=== PATIENT | male | born 2000 | race Hispanic/Latino ===

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

== ENCOUNTER 2019-01-17 16:00 | Emergency (ER) | payer BC ==
[2019-01-17] MEDS ORDERED: MAGNES/ALUMIN/SIMET 30ML UCUP ONE (16:29)
[2019-01-17] MEDS ORDERED: LIDOCAINE VISCOUS 2% SOLN 15 ML UDC ONE (16:29)
[2019-01-17] MEDS ORDERED: FAMOTIDINE 20 MG TAB ONE (16:29)
--- NOTE | 2019-01-17 16:32 | ER ---
Nurse's Notes [facility] Name: Oni Powers Age: 18 yrs Sex: Male : 2000 Arrival Date: 01/17/2019 Time: 16:05 Bed 10 Private MD: Diagnosis: Gastritis, unspecified Presentation: 01/17 16:05 Presenting complaint: Patient states: epigastric burning that began this morning. Pt ss reports he ate [employer] peppers last night for a competition and believes that is what has caused this discomfort. Transition of care: patient was not received from another setting of care. Onset of symptoms was January 17, 2019. Risk Assessment: Do you want to hurt yourself or someone else? Patient reports no desire to harm self or others. Initial Sepsis Screen: Does the patient meet any 2 criteria? No. Patient's initial sepsis screen is negative. Does the patient have a suspected source of infection? No. Patient's initial sepsis screen is negative. Care prior to arrival: None. 16:05 Method Of Arrival: Ambulatory ss 16:05 Acuity: JOSE 5 ss Historical: - Allergies: 16:06 Amoxicillin; ss 16:06 Azithromycin; ss 16:06 Cephalexin Monohydrate; ss 16:06 PENICILLINS; ss 16:06 pseudoephedrine HCl; ss - Home Meds: 16:06 None [Active]; ss - PMHx: 16:06 adrenal insufficientcy; ss - PSHx: 16:06 None; ss - Immunization history:: Adult Immunizations up to date. - Social history:: Smoking status: Patient/guardian denies using tobacco. - Ebola Screening: : Patient denies exposure to infectious person Patient denies travel to an Ebola-affected area in the 21 days before illness onset. Screenin:40 Abuse screen: Denies threats or abuse. Denies injuries from another. Nutritional iw screening: No deficits noted. Tuberculosis screening: No symptoms or risk factors identified. Fall Risk None identified. Assessment: 16:38 General: Appears in no apparent distress. Behavior is calm, cooperative. Pain: iw Complains of pain in abdomen. Neuro: Level of Consciousness is awake, alert, obeys commands. Respiratory: Respiratory effort is even, unlabored, Respiratory pattern is regular. GI: Abdomen is non-distended. Derm: Skin is intact, is healthy with good turgor. Musculoskeletal: Range of motion: intact in all extremities. Vital Signs: 16:06 BP 122 / 80; Pulse 67; Resp 15; Temp 97.6(TE); Pulse Ox 98% on R/A; Weight 59.87 kg; ss Height 5 ft. 5 in. (165.10 cm); Pain 10/10; 16:06 Body Mass Index 21.97 (59.87 kg, 165.10 cm) ED Course: 16:05 Patient arrived in ED. ss 16:06 Triage completed. ss 16:06 Arm band placed on right wrist. ss 16:08 Mark Irizarry NP is PHCP. pm1 16:08 Slim Jon MD is Attending Physician. pm1 16:16 Loree Flores RN is Primary Nurse. ss 16:39 No provider procedures requiring assistance completed. Patient did not have IV access iw during this emergency room visit. 16:40 Patient has correct armband on for positive identification. iw Administered Medications: 16:16 Drug: GI Cocktail without - (Maalox Suspension 30 ml, Lidocaine Liquid 2 % 15 ss ml) Route: PO; 16:40 Follow up: Response: No adverse reaction; Pain is decreased iw 16:17 Drug: Pepcid 20 mg Route: PO; ss 16:40 Follow up: Response: No adverse reaction iw Outcome: 16:31 Discharge ordered by . pm1 16:39 Discharged to home ambulatory, with family. iw 16:39 Condition: good 16:39 Discharge instructions given to 16:41 Patient left the ED. iw Signatures: Dayanara Negro RN RN Loree Flores RN RN Mark Irizarry NP EMERGENCY CARE TECH pm1
--- NOTE | 2019-01-17 16:33 | EDPHYS ---
Physician Documentation [facility] Name: Oni Powers Age: 18 yrs Sex: Male : 2000 Arrival Date: 01/17/2019 Time: 16:05 Bed 10 Private MD: ED Physician Slim Jon HPI: 01/17 16:17 This 18 yrs old Male presents to ER via Ambulatory with complaints of pm1 Epigastric Pain. 16:17 The patient presents with abdominal pain. Onset: The symptoms/episode began/occurred pm1 yesterday. The symptoms do not radiate. Associated signs and symptoms: Pertinent negatives: nausea, vomiting, and diarrhea, constipation, dysuria, fever. The symptoms are described as burning. Modifying factors: The symptoms are alleviated by nothing, the symptoms are aggravated by nothing. Severity of pain: in the emergency department the pain has improved. The patient has not experienced similar symptoms in the past. The patient has not recently seen a physician. Patient ate a [employer] pepper for a dare/challenge yesterday. Historical: - Allergies: 16:06 Amoxicillin; ss 16:06 Azithromycin; ss 16:06 Cephalexin Monohydrate; ss 16:06 PENICILLINS; ss 16:06 pseudoephedrine HCl; ss - Home Meds: 16:06 None [Active]; ss - PMHx: 16:06 adrenal insufficientcy; ss - PSHx: 16:06 None; ss - Immunization history:: Adult Immunizations up to date. - Social history:: Smoking status: Patient/guardian denies using tobacco. - Ebola Screening: : Patient denies exposure to infectious person Patient denies travel to an Ebola-affected area in the 21 days before illness onset. ROS: 16:17 Constitutional: Negative for fever, chills, and weight loss, Eyes: Negative for injury, pm1 pain, redness, and discharge, ENT: Negative for injury, pain, and discharge, Neck: Negative for injury, pain, and swelling, Cardiovascular: Negative for chest pain, palpitations, and edema, Respiratory: Negative for shortness of breath, cough, wheezing, and pleuritic chest pain. 16:17 Back: Negative for injury and pain, : Negative for injury, bleeding, discharge, and swelling, MS/Extremity: Negative for injury and deformity, Skin: Negative for injury, rash, and discoloration, Neuro: Negative for headache, weakness, numbness, tingling, and seizure. 16:17 Abdomen/GI: Positive for abdominal pain, of the epigastric area, Negative for nausea, vomiting, and diarrhea. Exam: 16:17 Constitutional: This is a well developed, well nourished patient who is awake, alert, pm1 and in no acute distress. Head/Face: Normocephalic, atraumatic. Neck: Trachea midline, no thyromegaly or masses palpated, and no cervical lymphadenopathy. Supple, full range of motion without nuchal rigidity, or vertebral point tenderness. No Meningismus. Chest/axilla: Normal chest wall appearance and motion. Nontender with no deformity. No lesions are appreciated. Cardiovascular: Regular rate and rhythm with a normal S1 and S2. No gallops, murmurs, or rubs. Normal PMI, no JVD. No pulse deficits. Respiratory: Lungs have equal breath sounds bilaterally, clear to auscultation and percussion. No rales, rhonchi or wheezes noted. No increased work of breathing, no retractions or nasal flaring. Abdomen/GI: Soft, non-tender, with normal bowel sounds. No distension or tympany. No guarding or rebound. No evidence of tenderness throughout. Back: No spinal tenderness. No costovertebral tenderness. Full range of motion. Skin: Warm, dry with normal turgor. Normal color with no rashes, no lesions, and no evidence of cellulitis. MS/ Extremity: Pulses equal, no cyanosis. Neurovascular intact. Full, normal range of motion. 16:17 Neuro: Orientation: is normal, Motor: is normal, moves all fours, Gait: is steady, at a normal pace, without difficulty. Vital Signs: 16:06 BP 122 / 80; Pulse 67; Resp 15; Temp 97.6(TE); Pulse Ox 98% on R/A; Weight 59.87 kg; ss Height 5 ft. 5 in. (165.10 cm); Pain 10/10; 16:06 Body Mass Index 21.97 (59.87 kg, 165.10 cm) ss MDM: 16:09 Patient medically screened. pm1 16:28 Data reviewed: vital signs. Data interpreted: Pulse oximetry: on room air is 98 %. pm1 Interpretation: normal. Counseling: I had a detailed discussion with the patient and/or guardian regarding: the historical points, exam findings, and any diagnostic results supporting the discharge/admit diagnosis, the need for outpatient follow up, to return to the emergency department if symptoms worsen or persist or if there are any questions or concerns that arise at home. Administered Medications: 16:16 Drug: GI Cocktail without - (Maalox Suspension 30 ml, Lidocaine Liquid 2 % 15 ss ml) Route: PO; 16:40 Follow up: Response: No adverse reaction; Pain is decreased iw 16:17 Drug: Pepcid 20 mg Route: PO; ss 16:40 Follow up: Response: No adverse reaction iw Disposition: 17:02 Co-signature as Attending Physician, Slim Jon MD. Disposition: 01/17/19 16:31 Discharged to Home. Impression: Gastritis, unspecified. - Condition is Stable. - Discharge Instructions: Gastritis, Adult. - Prescriptions for Pepcid 20 mg Oral Tablet - take 1 tablet by ORAL route every 12 hours for 10 days; 20 tablet. - Medication Reconciliation Form, Thank You Letter, Antibiotic Education, Prescription Opioid Use form. - Follow up: Emergency Department; When: As needed; Reason: Worsening of condition. Follow up: Private Physician; When: 2 - 3 days; Reason: Recheck today's complaints, Continuance of care, Re-evaluation by your physician. - Problem is new. - Symptoms have improved. Signatures: Dayanara Negro RN RN Loree Flores RN RN Mark Irizarry, BARBER [employer]AUTY [employer] MANAGER [employer]BER [employer] BEAUTY [employer] MANAGER pm1 Slim Jon MD MD Corrections: (The following items were deleted from the chart) 16:41 16:31 01/17/2019 16:31 Discharged to Home. Impression: Gastritis, unspecified. iw Condition is Stable. Forms are Medication Reconciliation Form, Thank You Letter, Antibiotic Education, Prescription Opioid Use. Follow up: Emergency Department; When: As needed; Reason: Worsening of condition. Follow up: Private Physician; When: 2 - 3 days; Reason: Recheck today's complaints, Continuance of care, Re-evaluation by your physician. Problem is new. Symptoms have improved. pm1
[2019-01-17 17:42] VITALS: BP 122/80; TEMP 97.6; O2SAT 98
== END 2019-01-17 16:41 | disposition home or self-care (01) ==
LOC: ER 16:00
DX: K29.70 Gastritis, unspecified, without bleeding (principal); Z88.0 Allergy status to penicillin; Z88.1 Allergy status to other antibiotic agents; Z88.8 Allergy status to other drugs, medicaments and biological substances
CPT/HCPCS: 99283

== ENCOUNTER 2019-08-19 16:33 | Emergency (ER) | payer BC ==
[2019-08-19 18:11] LABS: Absolute Lymphocytes (CBC) 1.7 K/uL (0.7-4.9); Basophils % 0.3 % (0-1.3); Hematocrit 51.3 % (39.6-49.0); Lymphocytes % 26.6 % (15.3-44.8); MPV 8.1 fL (7.6-11.3); RBC Red Blood Cell Count 6.03 M/uL (4.33-5.43)
[2019-08-19 18:22] LABS: Urine Blood NEGATIVE (NEG); Urine Glucose NEGATIVE (NEG); Urine Protein NEGATIVE (NEG); Urine Specific Gravity >1.030 (1.005-1.030)
[2019-08-19] MEDS ORDERED: NA CHLORIDE 0.9% 1,000 ML ONE (18:28)
[2019-08-19] MEDS ORDERED: ONDANSETRON 4 MG/2 ML VIAL ONE (18:28)
[2019-08-19 18:29] LABS: ALT/SGPT 20 U/L (12-78); AST/SGOT 12 U/L (15-37); Albumin 4.6 g/dL (3.4-5.0); Alkaline Phosphatase 108 U/L (45-117); BUN Blood Urea Nitrogen 14 mg/dL (7-18); Bicarbonate 29 mmol/L (21-32); Bilirubin Direct 0.2 mg/dL (0-0.2); Bilirubin Total 0.8 mg/dL (0.2-1.0); Glucose Level 102 mg/dL (74-106); Lipase 182 U/L (73-393); Potassium 3.6 mmol/L (3.5-5.1); Protein, Total 7.9 g/dL (6.4-8.2); Sodium Level 139 mmol/L (136-145)
--- NOTE | 2019-08-19 19:18 | RAD REPORT ---
EXAM DESCRIPTION: CT - Abdomen Pelvis W Contrast - 08/19/2019 7:05 pm CLINICAL HISTORY: ABD PAIN COMPARISON: No comparisons TECHNIQUE: Biphasic, helical CT imaging of the abdomen and pelvis was performed following 100 ml non -ionic IV contrast. No oral contrast. All CT scans are performed using dose optimization technique as appropriate and may include automated exposure control or mA/KV adjustment according to patient size. FINDINGS: No suspicious findings in the lung bases. The liver, spleen, and pancreas show no suspicious findings. Gallbladder and biliary tree are also wi thout suspicious finding. Symmetric renal function is seen with no hydronephrosis or suspicious renal mass. No pyelonephritis o r acute parenchymal process. No bladder abnormalities. No adrenal abnormalities. No dilated bowel loops or bowel wall thickening. The appendix is normal in diameter. No surrounding e dematous/ inflammatory stranding. Patient does have multiple mesenteric lymph nodes in the right lowe r quadrant and a few central mesenteric lymph nodes. No free air, free fluid or inflammatory strandin g. No hernia, mass or bulky lymphadenopathy. No suspicious bony findings. IMPRESSION: Mesenteric adenitis or nonspecific enteritis pattern. No appendicitis findings or other surgically emergent finding.
--- NOTE | 2019-08-19 19:34 | EDPHYS ---
Physician Documentation [facility] Name: Oni Powers Age: 19 yrs Sex: Male : 2000 Arrival Date: 08/19/2019 Time: 16:34 Bed Treatment Private MD: ED Physician Blue Sow HPI: 08/19 17:55 This 19 yrs old Male presents to ER via Ambulatory with complaints of la1 Abdominal Pain. 17:55 The patient presents with abdominal pain right lower quadrant. Onset: The la1 symptoms/episode began/occurred 1 week(s) ago, and became worse. The symptoms do not radiate. Associated signs and symptoms: Pertinent positives: nausea, vomiting, and diarrhea. The symptoms are described as sharp. Modifying factors: The symptoms are alleviated by nothing, the symptoms are aggravated by movement, pressure, touching the area. Severity of pain: At its worst the pain was moderate. The patient has not experienced similar symptoms in the past. pt reports RLQ pain that is non-radiating, pain for the last week, made worse with lying on the left side. 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 - Coronavirus screen:: The patient has NOT traveled to [place], [place], or [place] in the past 14 days. The patient has NOT had contact with known/suspected case of Coronavirus?. - Social history:: Smoking status: Patient denies any tobacco usage or history of. - Ebola Screening: : Patient negative for fever greater than or equal to 101.5 degrees Fahrenheit, and additional compatible Ebola Virus Disease symptoms Patient denies exposure to infectious person Patient denies travel to an Ebola-affected area in the 21 days before illness onset No symptoms or risks identified at this time. ROS: 17:56 Constitutional: Negative for fever, chills, and weight loss, Eyes: Negative for injury, la1 pain, redness, and discharge, ENT: Negative for injury, pain, and discharge, Neck: Negative for injury, pain, and swelling, Cardiovascular: Negative for chest pain, palpitations, and edema, Respiratory: Negative for shortness of breath, cough, wheezing, and pleuritic chest pain. 17:56 Back: Negative for injury and pain, MS/Extremity: Negative for injury and deformity, Neuro: Negative for headache, weakness, numbness, tingling, and seizure, Endocrine: Negative for neck swelling, polydipsia, polyuria, polyphagia, and marked weight changes. 17:56 Abdomen/GI: Positive for abdominal pain, nausea, vomiting, and diarrhea. Exam: 17:57 Constitutional: This is a well developed, well nourished patient who is awake, alert, la1 and in no acute distress. Head/Face: Normocephalic, atraumatic. ENT: Mucous membranes moist. Neck: Trachea midline, No Meningismus. Chest/axilla: Normal chest wall appearance and motion. Nontender with no deformity. No lesions are appreciated. Cardiovascular: Regular rate and rhythm with a normal S1 and S2. Respiratory: Lungs have equal breath sounds bilaterally, clear to auscultation Back: No spinal tenderness. No costovertebral tenderness. Full range of motion. 17:57 MS/ Extremity: Pulses equal, no cyanosis. Neurovascular intact. Full, normal range of motion. Neuro: Awake and alert, GCS 15, oriented to person, place, time, and situation. Normal gait. 17:57 Abdomen/GI: Inspection: abdomen appears normal, Bowel sounds: normal, in all quadrants, Palpation: soft, in all quadrants, mild abdominal tenderness, in the right lower quadrant, Indicators: McBurney's point is tender, Dillard's sign is negative, Rovsing's sign is positive, Obturator sign is negative, Psoas sign is negative. Vital Signs: 17:14 BP 107 / 79; Pulse 77; Resp 17 S; Temp 97.9(TE); Pulse Ox 98% on R/A; Weight 62.14 kg ca1 (R); Height 5 ft. 5 in. (165.10 cm) (R); Pain 8/10; 17:14 Body Mass Index 22.80 (62.14 kg, 165.10 cm) ca1 MDM: 17:32 Patient medically screened. la1 19:32 Differential diagnosis: appendicitis, cholecystitis, diverticulitis, gastritis, la1 gastroesophageal reflux disease, Irritable bowel syndrome. Data reviewed: vital signs, nurses notes, lab test result(s), radiologic studies, and as a result, I will discharge patient. Data interpreted: Pulse oximetry: on room air is 98 %. Interpretation: normal. Counseling: I had a detailed discussion with the patient and/or guardian regarding: the historical points, exam findings, and any diagnostic results supporting the discharge/admit diagnosis, lab results, radiology results, the need for outpatient follow up, a family practitioner, to return to the emergency department if symptoms worsen or persist or if there are any questions or concerns that arise at home. Medication response: morphine markedly relieved the patient's pain. Symptoms have improved. Response to treatment: the patient's symptoms have markedly improved after treatment, patient is well hydrated. and as a result, I will discharge patient. Special discussion: Based on the history and exam findings, there is no indication for further emergent testing or inpatient evaluation. I discussed with the patient/guardian the need to see the primary care provider for further evaluation of the symptoms. 08/19 17:49 Order name: Basic Metabolic Panel; Complete Time: 18:29 08/19 17:49 Order name: CBC with Diff; Complete Time: 18:27 08/19 17:49 Order name: Creatinine for Radiology; Complete Time: 18:29 08/19 17:49 Order name: Hepatic Function; Complete Time: 18:29 08/19 17:49 Order name: Lipase; Complete Time: 18:29 08/19 18:13 Order name: Urine Dipstick--Ancillary (enter results); Complete Time: 18:29 08/19 17:49 Order name: IV Saline Lock; Complete Time: 18:12 ri08/19 17:49 Order name: Labs collected and sent; Complete Time: 18:12 08/19 17:49 Order name: Urine Dipstick-Ancillary (obtain specimen); Complete Time: 18:11 08/19 17:56 Order name: CT Abd/Pelvis - IV Contrast Only; Complete Time: 19:30 la1 Administered Medications: 18:33 Drug: Zofran 4 mg Route: IVP; Site: left antecubital; iw 19:00 Follow up: Response: No adverse reaction iw 18:33 Drug: NS 0.9% 1000 ml Route: IV; Rate: 1000 ml; Site: left antecubital; iw 21:07 Not Given (Patient Refused): morphine 2 mg IVP once; (PAIN>8) RASS on ADMN: Combtv4, iw Very Agttd3, Agttd2, Rstlss1, AlertClm0, Drwsy-1, LtSdtn-2, ModSdtn-3, DpSdtn-4, UnArsble-5 x2 Disposition: 08/20 07:24 Co-signature as Attending Physician, Blue Sow MD I agree with the assessment and shelby plan of care. Disposition: 08/19/19 19:34 Discharged to Home. Impression: Nonspecific mesenteric lymphadenitis, Abdominal and pelvic pain. - Condition is Stable. - Discharge Instructions: Abdominal Pain, Adult, Mesenteric Adenitis, Pediatric, Abdominal Pain, Adult, [id number]. - Prescriptions for Bentyl 20 mg Oral Tablet - take 1 tablet by ORAL route every 6 hours As needed; 20 tablet. Zofran 4 mg Oral Tablet - take 1 tablet by ORAL route every 12 hours As needed; 6 tablet. - Family Work Release, Medication Reconciliation Form, Thank You Letter form. - Follow up: Private Physician; When: 2 - 3 days; Reason: Recheck today's complaints, Re-evaluation by your physician. - Problem is new. - Symptoms have improved. Signatures: Dispatcher [employer] Blue Parks MD MD cha Williams, Irene, RN RN iw Aristeo Kohli, HOOP FLARING MACHINE OPERATOR-C HOOP FLARING MACHINE OPERATOR-Cla1 Carlee Weathers RN RN ca1 Corrections: (The following items were deleted from the chart) 08/19 19:53 19:34 08/19/2019 19:34 Discharged to Home. Impression: Nonspecific mesenteric iw lymphadenitis; Abdominal and pelvic pain. Condition is Stable. Forms are Medication Reconciliation Form, Thank You Letter, Antibiotic Education, Prescription Opioid Use. Follow up: Private Physician; When: 2 - 3 days; Reason: Recheck today's complaints, Re-evaluation by your physician. Problem is new. Symptoms have improved. la1
--- NOTE | 2019-08-19 19:34 | ER ---
Nurse's Notes [facility] Name: Oni Powers Age: 19 yrs Sex: Male : 2000 Arrival Date: 08/19/2019 Time: 16:34 Bed Treatment Private MD: Diagnosis: Nonspecific mesenteric lymphadenitis;Abdominal and pelvic pain Presentation: 08/19 17:12 Presenting complaint: Patient states: Abdominal pain on the Lower R side for about a ca1 week now. Took OTC nausea and IBS medications to no relief. Denies fever, Reports N/V/Diarrhea. Transition of care: patient was not received from another setting of care. Onset of symptoms was August 19, 2019. Risk Assessment: Do you want to hurt yourself or someone else? Patient reports no desire to harm self or others. Initial Sepsis Screen: Does the patient meet any 2 criteria? No. Patient's initial sepsis screen is negative. Does the patient have a suspected source of infection? No. Patient's initial sepsis screen is negative. Care prior to arrival: None. 17:12 Method Of Arrival: Ambulatory ca1 17:12 Acuity: JOSE 3 ca1 Triage Assessment: 19:53 General: Appears in no apparent distress. Behavior is calm. 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 - Coronavirus screen:: The patient has NOT traveled to [place], [place], or [place] in the past 14 days. The patient has NOT had contact with known/suspected case of Coronavirus?. - Social history:: Smoking status: Patient denies any tobacco usage or history of. - Ebola Screening: : Patient negative for fever greater than or equal to 101.5 degrees Fahrenheit, and additional compatible Ebola Virus Disease symptoms Patient denies exposure to infectious person Patient denies travel to an Ebola-affected area in the 21 days before illness onset No symptoms or risks identified at this time. Screenin:50 Abuse screen: Denies threats or abuse. Denies injuries from another. Nutritional iw screening: No deficits noted. Tuberculosis screening: No symptoms or risk factors identified. Fall Risk IV access (20 points). Assessment: 17:50 General: Appears in no apparent distress. Behavior is calm, cooperative. Pain: iw Complains of pain in right lower quadrant. Neuro: Level of Consciousness is awake, alert, obeys commands, Oriented to person, place, time, situation, Moves all extremities. Full function. Cardiovascular: Patient's skin is warm and dry. GI: Abdomen is flat, Bowel sounds present X 4 quads. Abd is soft X 4 quads Abdomen is tender to palpation in right lower quadrant Reports lower abdominal pain, nausea. Derm: Skin is intact, is healthy with good turgor. Musculoskeletal: Range of motion: intact in all extremities. Vital Signs: 17:14 BP 107 / 79; Pulse 77; Resp 17 S; Temp 97.9(TE); Pulse Ox 98% on R/A; Weight 62.14 kg ca1 (R); Height 5 ft. 5 in. (165.10 cm) (R); Pain 8/10; 17:14 Body Mass Index 22.80 (62.14 kg, 165.10 cm) ca1 ED Course: 16:34 Patient arrived in ED. as 17:13 Triage completed. ca1 17:14 Arm band placed on right wrist. ca1 17:30 Dayanara Negro, RN is Primary Nurse. iw 17:32 Aristeo Kohli FNP-C [facility]. la1 17:32 Blue Sow MD is Attending Physician. la1 17:50 Patient has correct armband on for positive identification. iw 18:00 Inserted saline lock: 20 gauge in left antecubital area, using aseptic technique. iw 19:06 CT Abd/Pelvis - IV Contrast Only In Process Unspecified. EDMS 19:52 No provider procedures requiring assistance completed. IV discontinued, intact, iw bleeding controlled, No redness/swelling at site. Pressure dressing applied. Administered Medications: 18:33 Drug: Zofran 4 mg Route: IVP; Site: left antecubital; iw 19:00 Follow up: Response: No adverse reaction iw 18:33 Drug: NS 0.9% 1000 ml Route: IV; Rate: 1000 ml; Site: left antecubital; iw 21:07 Not Given (Patient Refused): morphine 2 mg IVP once; (PAIN>8) RASS on ADMN: Combtv4, iw Very Agttd3, Agttd2, Rstlss1, AlertClm0, Drwsy-1, LtSdtn-2, ModSdtn-3, DpSdtn-4, UnArsble-5 x2 Outcome: 19:34 Discharge ordered by la1 19:52 Discharged to home ambulatory, with family. iw 19:52 Condition: good 19:52 Discharge instructions given to patient, family, Instructed on discharge instructions, follow up and referral plans. medication usage, Demonstrated understanding of instructions, follow-up care, medications, Prescriptions given X 2. 19:53 Patient left the ED. iw Signatures: Dispatcher [employer] Ebnoi Sue Irene, RN RN iw Aristeo Kohli, DIPLOMATIC OFFICER-C DIPLOMATIC OFFICER-Cla1 Carlee Weathers RN RN ca1
[2019-08-19 20:10] VITALS: BP 107/79; TEMP 97.9; O2SAT 98
== END 2019-08-19 19:53 | disposition home or self-care (01) ==
LOC: ER 16:33
DX: R10.2 Pelvic and perineal pain (principal); I88.0 Nonspecific mesenteric lymphadenitis; Z88.1 Allergy status to other antibiotic agents; Z88.0 Allergy status to penicillin; Z88.3 Allergy status to other anti-infective agents
CPT/HCPCS: 85025; 80048; 36415; 80076; 81003; 83690; 74177; 96374; 99284; Q9967; J7030; J2405